=== PATIENT | female | born 1955 | race Caucasian/White ===

== ENCOUNTER 2016-12-16 10:04 | Inpatient (IN) | payer OTHER ==
[2016-12-16] VITALS (11 sets, daily range): BP systolic 118–152; BP diastolic 70–87; PULSE 75–113; RESP 17–22; TEMP 97.3–98.7; O2SAT 90–95
[~2016-12-16] VITALS: Ht 162.6 cm; Wt 73.2 kg
[2016-12-16 10:29] LABS: AUTOMATED NEUTROPHIL # 6.1 TH/MM3 (1.8-7.7); BASOPHIL # 0.3 TH/MM3 (0-0.2); BASOPHIL % 3.9 % (0.0-2.0); EOSINOPHIL # 0.1 TH/MM3 (0-0.4); HEMATOCRIT 53.5 % (35.0-46.0); HEMO FLAGS DIFF FINAL; LYMPH % 16.2 % (9.0-44.0); LYMPHOCYTE # 1.3 TH/MM3 (1.0-4.8); MEAN CELL VOLUME 91.8 FL (80.0-100.0); MEAN CORPUSCULAR HEMOGLOBIN 29.6 PG (27.0-34.0); MEAN CORPUSCULAR HGB CONC 32.2 % (32.0-36.0); MONO % 6.5 % (0.0-8.0); NEUT % 72.4 % (16.0-70.0); PLATELET COUNT 195 TH/MM3 (150-450); RED BLOOD COUNT 5.82 MIL/MM3 (4.00-5.30); RED CELL DISTRIBUTION WIDTH 15.3 % (11.6-17.2); WHITE BLOOD COUNT 8.3 TH/MM3 (4.0-11.0)
[2016-12-16] MEDS ORDERED: RESP: ALBUTEROL 2.5 MG/IPRATROPIUM 0.5 MG NEB (SCH) NEB ONE ×3 (10:30→15:00)
--- NOTE | 2016-12-16 10:30 | PD ---
HPI Chief Complaint: Edema Time Seen by Provider: 10:09 Travel History International Travel<30 days: No Contact w/Intl Traveler<30days: No Traveled to known affect area: No History of Present Illness HPI The patient was seen and examined in the presence of the nurse. She complains of swelling in her legs duration one week. She's had intermittent swelling for a long time but for last 7 days her feet and legs have been more swollen than usual. She was short of breath yesterday. Has room air saturation of 88% at this time. No chest pain or presyncopal symptoms. She does have a dry cough. Symptoms of moderate severity. No alleviating factors. Denies history of cardiac or pulmonary disease per her report. However she smokes and rarely goes to physicians. PFSH Past Medical History Medical History: Denies Significant Hx Hx Anticoagulant Therapy: No Diminished Hearing: No Tetanus Vaccination: Unknown ?: Not Social History Alcohol Use: No Tobacco Use: Yes (12/02 PPD) Substance Use: No Allergies-Medications (Allergen,Severity, Reaction): Coded Allergies: No Known Allergies (Unverified , 12/16/16) Reported Meds & Prescriptions Reported Meds & Active Scripts Active No Active Prescriptions or Reported Medications Review of Systems General / Constitutional: No: Fever Eyes: No: Visual changes HENT: No: Headaches Cardiovascular: Positive: Edema, No: Chest Pain or Discomfort Respiratory: Positive: Cough, Shortness of Breath Gastrointestinal: No: Abdominal Pain Genitourinary: No: Dysuria Musculoskeletal: Positive: Edema, No: Pain Skin: No Rash Neurologic: No: Weakness Psychiatric: No: Depression Endocrine: No: Polydipsia Hematologic/Lymphatic: No: Easy Bruising Physical Exam Narrative GENERAL: Well-nourished, well-developed patient was hypoxic with edema. SKIN: Warm and dry. HEAD: Atraumatic. Normocephalic. EYES: Pupils equal and round. No scleral icterus. No injection or drainage. ENT: No nasal bleeding or discharge. Mucous membranes pink and moist. NECK: Trachea midline. No JVD. CARDIOVASCULAR: Regular rate and rhythm. No murmur appreciated. RESPIRATORY: No accessory muscle use. Sparse basilar crackles. Breath sounds equal bilaterally. No wheezing GASTROINTESTINAL: Abdomen soft, non-tender, nondistended. Hepatic and splenic margins not palpable. MUSCULOSKELETAL: No obvious deformities. No clubbing. No cyanosis. Has symmetric edema from the knees down. Slight pitting in the [place] regions NEUROLOGICAL: Awake and alert. No obvious cranial nerve deficits. Motor grossly within normal limits. Normal speech. PSYCHIATRIC: Appropriate mood and affect; insight and judgment normal. Data Data Last Documented VS Vital Signs Date Time Temp Pulse Resp B/P Pulse Ox O2 Delivery O2 Flow Rate FiO2 12/16/16 12:10 92 22 136/74 93 Nasal Cannula 4 12/16/16 10:08 98.7 Orders Iv Access Insert/Monitor (12/16/16 10:21) Complete Blood Count With Diff (12/16/16 10:21) Comprehensive Metabolic Panel (12/16/16 10:21) Chest, Single Ap (12/16/16 ) Electrocardiogram (12/16/16 ) Albuterol-Ipratropium Neb (Duoneb Neb) (12/16/16 10:30) Albuterol-Ipratropium Neb (Duoneb Neb) (12/16/16 10:30) Furosemide Inj (Lasix Inj) (12/16/16 11:00) Ckmb (Isoenzyme) Profile (12/16/16 10:20) Troponin I (12/16/16 10:20) Admit Order (Ed Use Only) (12/16/16 12:13) Admit Order (Ed Use Only) (12/16/16 12:17) Arterial Blood Gas (Abg) (12/16/16 ) Admit To Inpatient (12/16/16 ) Vital Signs (Adult) SOPHIE.Q4H (12/16/16 12:16) ^ Executive Director / Telemetry (12/16/16 12:16) Intake + Output SOPHIE.QSHIFT (12/16/16 12:16) Diet Heart Healthy (12/16/16 Lunch) Sodium Chloride 0.9% Flush (Ns Flush) (12/16/16 21:00) Sodium Chloride 0.9% Flush (Ns Flush) (12/16/16 12:30) Bumetanide Inj (Bumex Inj) (12/16/16 18:00) Basic Metabolic Panel (Bmp) (12/17/16 06:00) Echo 2d Comp W/Dopp(Routine) (12/16/16 ) Resp Oxygen Merritt C Titrat 1-4 L (12/16/16 ) Labs Laboratory Tests Test 12/16/16 10:20 White Blood Count 8.3 TH/MM3 Red Blood Count 5.82 MIL/MM3 Hemoglobin 17.2 GM/DL Hematocrit 53.5 % Mean Corpuscular Volume 91.8 FL Mean Corpuscular Hemoglobin 29.6 PG Mean Corpuscular Hemoglobin 32.2 % Concent Red Cell Distribution Width 15.3 % Platelet Count 195 TH/MM3 Mean Platelet Volume 8.3 FL Neutrophils (%) (Auto) 72.4 % Lymphocytes (%) (Auto) 16.2 % Monocytes (%) (Auto) 6.5 % Eosinophils (%) (Auto) 1.0 % Basophils (%) (Auto) 3.9 % Neutrophils # (Auto) 6.1 TH/MM3 Lymphocytes # (Auto) 1.3 TH/MM3 Monocytes # (Auto) 0.5 TH/MM3 Eosinophils # (Auto) 0.1 TH/MM3 Basophils # (Auto) 0.3 TH/MM3 CBC Comment DIFF FINAL Differential Comment Sodium Level 141 MEQ/L Potassium Level 4.4 MEQ/L Chloride Level 99 MEQ/L Carbon Dioxide Level 33.6 MEQ/L Anion Gap 8 MEQ/L Blood Urea Nitrogen 24 MG/DL Creatinine 0.79 MG/DL Estimat Glomerular Filtration 74 ML/MIN Rate Random Glucose 117 MG/DL Calcium Level 8.5 MG/DL Total Bilirubin 0.7 MG/DL Aspartate Amino Transf 30 U/L (AST/SGOT) Alanine Aminotransferase 29 U/L (ALT/SGPT) Alkaline Phosphatase 82 U/L Total Creatine Kinase 77 U/L Troponin I LESS THAN 0.02 NG/ML Total Protein 7.5 GM/DL Albumin 3.6 GM/DL [facility] Medical Decision Making Medical Screen Exam Complete: Yes Emergency Medical Condition: Yes Medical Record Reviewed: Yes Differential Diagnosis Congestive heart failure, bronchitis, liver failure, renal failure Narrative Course I have reviewed the patient's electronic medical record. IV placed I reviewed her chest x-ray which shows pulmonary edema I reviewed her EKG shows sinus tachycardia without ectopy Extended cardiac monitoring shows sinus tachycardia without ectopy I placed her on oxygen as she is hypoxic CBC is normal Metabolic profile is normal LFTs are normal CK and troponin are normal I gave her 80 mg IV Lasix. Patient has a new onset of congestive heart failure and is hypoxic on room air. On 4 L nasal cannula she is in mid 90s. She will require inpatient evaluation for diuresis and further cardiac evaluation I reviewed with hospitalist Diagnosis Primary Impression: Congestive heart failure Qualified Code: I50.9 - Acute congestive heart failure, unspecified congestive heart failure type Additional Impression: Hypoxia Admitting Information Admitting Physician Requests: Admit Scripts No Active Prescriptions or Reported Meds Raymundo Kidd MD Dec 16, 2016 10:30
[2016-12-16 10:39] LABS: CHLORIDE 99 MEQ/L (98-107); POTASSIUM 4.4 MEQ/L (3.5-5.1); SODIUM (NA) 141 MEQ/L (136-145)
[2016-12-16 10:43] LABS: ANION GAP 8 MEQ/L (5-15); BICARBONATE 33.6 MEQ/L (21.0-32.0); BLOOD UREA NITROGEN 24 MG/DL (7-18)
[2016-12-16 10:46] LABS: ALT (GPT) 29 U/L (10-53); AST (GOT) 30 U/L (15-37); GLOMERULAR FILTRATION RATE 74 ML/MIN (>89)
[2016-12-16 10:48] LABS: TOTAL BILIRUBIN ADULT 0.7 MG/DL (0.2-1.0)
[2016-12-16 10:49] LABS: ALKALINE PHOSPHATASE 82 U/L (45-117)
[2016-12-16] MEDS ORDERED: FUROSEMIDE 100 MG/10 ML VIAL IV PUSH ONE (11:00)
--- NOTE | 2016-12-16 11:09 | RADHPO ---
EXAM DATE/TIME: 12/16/2016 10:32 [facility] COMPARISON: No previous studies available for comparison. INDICATIONS: Short of breath, chest pressure, bilateral feet swelling. MEDICAL HISTORY: None. SURGICAL HISTORY: None. ENCOUNTER: Initial ACUITY: 1 week PAIN SCORE: 10 LOCATION: Bilateral chest FINDINGS: The heart size is borderline enlarged. The lungs demonstrate mild prominence in the interstitium. A focal consolidation is not seen. No effusion is seen. CONCLUSION: 1. Borderline cardiomegaly with prominence in the interstitium likely representing some pulmonary di sease. 2. Hypertension versus mild edema. Oli Carmona MD on December 16, 2016 at 11:01 Board Certified Radiologist. This report was verified electronically.
[2016-12-16 11:51] LABS: CREATINE KINASE 77 U/L (26-192)
[2016-12-16] MEDS ORDERED: SODIUM CHLORIDE 0.9% FLUSH 5 ML FLUSH IVF PRN (12:30)
[2016-12-16 12:31] LABS: BLOOD GAS BASE EXCESS 12.1 mmol/L (-2-2); BLOOD GAS CARBOXYHEMOGLOBIN 7.6 % (0-4); BLOOD GAS HCO3 37 mmol/L (22-26); BLOOD GAS METHEMOGLOBIN 1.1 % (0-2); BLOOD GAS O2 HGB SATURATION 87 % (90-100); BLOOD GAS OXYGEN CONTENT 21.9 Vol % (12.0-20.0); BLOOD GAS PCO2 62 mmHG (38-42); BLOOD GAS PO2 73 mmHG (61-120); CRITICAL VALUE YES; DRAW SITE LT RADIAL; FIO2 36 %; LITER FLOW 4 L/M; OXYGEN DEVICE NASAL CANNULA; TEMP CORR TO 98.6
[2016-12-16 12:32] LABS: NUMBER OF ARTERIAL PUNCTURES 1; STAT YES; ULNAR PULSE PRESENT
--- NOTE | 2016-12-16 15:03 | HHI.HP ---
[facility] No Primary Care Physician Admission Diagnosis new onset CHF, hypoxia Diagnoses: Chief Complaint: SOB Travel History International Travel<30 Days: No Contact w/Intl Traveler <30 Da: No Traveled to Known Affected Are: No History of Present Illness Patient seen and evaluated in the emergency room. She is a 60-year-old female increased work of breathing and dyspnea on exertion and lower extremity swelling for several months but worsening over the last 7 days. She tried compression hose, Ventolin inhaler and still became increasingly short of breath. To the point she was unable to complete her activities of daily living. This point she came to the emergency room and was hypoxemic with room air sat of 88. She is a dry cough and had been dyspneic at rest but after 80 mg of Lasix a great diuresis did help the symptoms of dyspnea. Patient has been admitted for further evaluation of likely congestive heart failure and COPD exacerbation Review of Systems Constitutional: COMPLAINS OF: Fever Endocrine: DENIES: Abnorml menstrual pattern, Heat/cold intolerance, Polydipsia , Polyuria, Polyphagia Eyes: DENIES: Blurred vision, Diplopia, Eye inflammation, Eye pain, Vision loss , Photosensitivity, Double Vision Respiratory: COMPLAINS OF: Shortness of breath, DENIES: Apneas, Cough, Snoring , Wheezing, Hemoptysis, Sputum production Cardiovascular: COMPLAINS OF: Dyspnea on Exertion, Lower Extremity Edema Gastrointestinal: DENIES: Abdominal pain, Black stools, Bloody stools, Constipation, Diarrhea, Nausea, Vomiting, Difficulty Swallowing, Anorexia Genitourinary: DENIES: Abnormal vaginal bleeding, Dysmenorrhea, Dyspareunia, Sexual dysfunction, Urinary frequency, Urinary incontinence, Urgency, Hematuria , Dysuria, Nocturia, Vaginal discharge Musculoskeletal: DENIES: Joint pain, Muscle aches, Stiffness, Joint Swelling, Back pain, Neck pain Integumentary: DENIES: Abnormal pigmentation, Pruritus, Rash, Nail changes, Breast masses, Breast skin changes, Nipple discharge Hematologic/lymphatic: DENIES: Bruising, Lymphadenopathy Immunologic/allergic: DENIES: Eczema, Urticaria Neurologic: DENIES: Abnormal gait, Headache, Localized weakness, Paresthesias, Seizures, Speech Problems, Tremor, Poor Balance Psychiatric: DENIES: Anxiety, Confusion, Mood changes, Depression, Hallucinations, Agitation, Suicidal Ideation, Homicidal Ideation, Delusions Past Family Social History Past Medical History Denies Past Surgical History Dental extraction Reported Medications Reviewed and the medical record Allergies: Coded Allergies: No Known Allergies (Unverified , 12/16/16) Active Ordered Medications Reviewed in the medical record Family History Sister had carotid surgery, mother has dementia Social History Smokes half pack a day, lives in the family, works daily Physical Exam Vital Signs Vital Signs Date Time Temp Pulse Resp B/P Pulse Ox O2 Delivery O2 Flow Rate FiO2 12/16/16 14:05 97.8 75 18 132/70 92 12/16/16 12:32 98.6 92 20 136/74 93 Nasal Cannula 4 12/16/16 12:10 92 22 136/74 93 Nasal Cannula 4 12/16/16 10:55 97 18 146/82 94 Nasal Cannula 4 12/16/16 10:24 91 Nasal Cannula 4 12/16/16 10:16 88 Nasal Cannula 4 12/16/16 10:08 98.7 113 18 152/87 Physical Exam GENERAL: This is a well-nourished, well-developed patient, able to complete full sentences SKIN: No rashes, ecchymoses or lesions. Cool and dry. HEAD: Atraumatic. Normocephalic. No temporal or scalp tenderness. EYES: Pupils equal round and reactive. Extraocular motions intact. No scleral icterus. No injection or drainage. ENT: Nose without bleeding, purulent drainage or septal hematoma. Throat without erythema, tonsillar hypertrophy or exudate. Uvula midline. Airway patent. NECK: Trachea midline. No JVD or lymphadenopathy. Supple, nontender, no meningeal signs. CARDIOVASCULAR: Regular rate and rhythm without murmurs, gallops, or rubs. RESPIRATORY: Bilateral crackles in the bases GASTROINTESTINAL: Abdomen soft, non-tender, nondistended. No hepato-splenomegaly , or palpable masses. No guarding. MUSCULOSKELETAL: Extremities without clubbing, cyanosis, or edema. No joint tenderness, effusion, or edema noted. No calf tenderness. Negative Homans sign bilaterally. NEUROLOGICAL: Awake and alert. Cranial nerves II through XII intact. Motor and sensory grossly within normal limits. Five out of 5 muscle strength in all muscle groups. Normal speech. Laboratory Laboratory Tests Test 12/16/16 12/16/16 10:20 12:23 White Blood Count 8.3 Red Blood Count 5.82 Hemoglobin 17.2 Hematocrit 53.5 Mean Corpuscular Volume 91.8 Mean Corpuscular Hemoglobin 29.6 Mean Corpuscular Hemoglobin 32.2 Concent Red Cell Distribution Width 15.3 Platelet Count 195 Mean Platelet Volume 8.3 Neutrophils (%) (Auto) 72.4 Lymphocytes (%) (Auto) 16.2 Monocytes (%) (Auto) 6.5 Eosinophils (%) (Auto) 1.0 Basophils (%) (Auto) 3.9 Neutrophils # (Auto) 6.1 Lymphocytes # (Auto) 1.3 Monocytes # (Auto) 0.5 Eosinophils # (Auto) 0.1 Basophils # (Auto) 0.3 CBC Comment DIFF FINAL Differential Comment Sodium Level 141 Potassium Level 4.4 Chloride Level 99 Carbon Dioxide Level 33.6 Anion Gap 8 Blood Urea Nitrogen 24 Creatinine 0.79 Estimat Glomerular Filtration 74 Rate Random Glucose 117 Calcium Level 8.5 Total Bilirubin 0.7 Aspartate Amino Transf 30 (AST/SGOT) Alanine Aminotransferase 29 (ALT/SGPT) Alkaline Phosphatase 82 Total Creatine Kinase 77 Troponin I LESS THAN 0.02 Total Protein 7.5 Albumin 3.6 Blood Gas Puncture Site LT RADIAL Blood Gas Patient Temperature 98.6 Blood Gas HCO3 37 Blood Gas Base Excess 12.1 Blood Gas Oxygen Saturation 87 Arterial Blood pH 7.40 Arterial Blood Partial 62 Pressure CO2 Arterial Blood Partial 73 Pressure O2 Arterial Blood Oxygen Content 21.9 Arterial Blood 7.6 Carboxyhemoglobin Arterial Blood Methemoglobin 1.1 Blood Gas Hemoglobin 18.0 Oxygen Delivery Device NASAL CANNULA Blood Gas Liter Flow 4 Blood Gas Inspired Oxygen 36 Result Diagram: 12/16/16 1020 12/16/16 1020 Assessment and Plan Problem List: (1) COPD (chronic obstructive pulmonary disease) ICD Code: J44.9 Status: Acute Plan: With evidence of acute hypoxemic/hypercapnic respiratory failure Patient with ongoing tobaccoism for which she has been counseled We'll continue with steroids, bronchodilators and oxygen as needed ? Cor pulmonale, echocardiogram pending (2) Congestive heart failure ICD Code: I50.9 Status: Acute Plan: 2-D echo pending Continue with medical management of RUFINA inhibitor, check lipid panel Patient may need cardiac consultation Physician Certification 2 Midnight Certification Type: Admission for Inpatient Services Order for Inpatient Services The services are ordered in accordance with Medicare regulations or non- Medicare payer requirements, as applicable. In the case of services not specified as inpatient-only, they are appropriately provided as inpatient services in accordance with the 2-midnight benchmark. Estimated LOS (days): 3 3 days is the estimated time the patient will need to remain in the hospital, assuming treatment plan goals are met and no additional complications. Post-Hospital Plan: Home Problem Qualifiers (1) Congestive heart failure: Qualified Code: I50.9 - Acute congestive heart failure, unspecified congestive heart failure type Shanta Duke MD Dec 16, 2016 15:03
[2016-12-16] MEDS: LISINOPRIL 10 MG TAB PO SCH (16:21)
[2016-12-16] MEDS: predniSONE 20 MG TAB PO SCH ×2 (16:21→21:17)
[2016-12-16] MEDS ORDERED: BUMETANIDE INJ 1 MG/4 ML VIAL IVP SCH (18:00)
[2016-12-16] MEDS: RESP: ALBUTEROL 2.5 MG/IPRATROPIUM 0.5 MG NEB (SCH) NEB (19:01)
[2016-12-16] MEDS: SODIUM CHLORIDE 0.9% FLUSH 5 ML FLUSH IVF SCH (21:18)
[2016-12-17] VITALS (9 sets, daily range): BP systolic 85–119; BP diastolic 56–70; PULSE 89–96; RESP 16–22; TEMP 97.3–98.7; O2SAT 91–97
[2016-12-17 06:40] LABS: AUTOMATED NEUTROPHIL # 5.2 TH/MM3 (1.8-7.7); BASOPHIL % 0.3 % (0.0-2.0); HEMATOCRIT 51.1 % (35.0-46.0); HEMO FLAGS DIFF FINAL; LYMPH % 9.4 % (9.0-44.0); LYMPHOCYTE # 0.6 TH/MM3 (1.0-4.8); MEAN CELL VOLUME 91.6 FL (80.0-100.0); MEAN CORPUSCULAR HEMOGLOBIN 29.3 PG (27.0-34.0); MONO % 2.4 % (0.0-8.0); NEUT % 87.9 % (16.0-70.0); PLATELET COUNT 189 TH/MM3 (150-450); RED BLOOD COUNT 5.58 MIL/MM3 (4.00-5.30); RED CELL DISTRIBUTION WIDTH 14.6 % (11.6-17.2); WHITE BLOOD COUNT 5.9 TH/MM3 (4.0-11.0)
[2016-12-17 06:56] LABS: POTASSIUM 4.5 MEQ/L (3.5-5.1)
[2016-12-17 07:00] LABS: BICARBONATE 36.2 MEQ/L (21.0-32.0)
[2016-12-17] MEDS: RESP: ALBUTEROL 2.5 MG/IPRATROPIUM 0.5 MG NEB (SCH) NEB ×3 (07:21→19:58)
[2016-12-17] MEDS: SODIUM CHLORIDE 0.9% FLUSH 5 ML FLUSH IVF SCH ×2 (09:04→20:45)
[2016-12-17] MEDS: LISINOPRIL 10 MG TAB PO SCH (09:05)
[2016-12-17] MEDS: predniSONE 20 MG TAB PO SCH ×2 (09:05→20:44)
[2016-12-17 09:23] LABS: HDL CHOLESTEROL 55.9 MG/DL (40.0-60.0)
--- NOTE | 2016-12-17 15:55 | HHI.PR ---
Subjective Remarks The patient states that she feels better and wants to go home. The patient states that she cannot use oxygen when she goes home as she works cleaning rooms in a hotel. The patient denies dyspnea. She says her leg edema has improved since undergoing diuresis. Objective Vitals Vital Signs Date Time Temp Pulse Resp B/P Pulse Ox O2 Delivery O2 Flow Rate FiO2 12/17/16 12:00 98.4 95 22 105/63 92 12/17/16 09:08 19 91 12/17/16 08:25 89 12/17/16 08:00 97.7 93 22 109/56 93 12/17/16 07:23 96 Nasal Cannula 4.00 12/17/16 00:00 97.3 92 16 119/67 95 12/16/16 20:07 89 12/16/16 20:00 97.3 94 18 118/72 90 12/16/16 20:00 97.3 94 18 118/72 90 12/16/16 19:00 93 Nasal Cannula 4.00 12/16/16 16:00 98.0 93 17 127/72 94 I/O 12/16/16 12/16/16 12/16/16 12/17/16 12/17/16 12/17/16 06:59 14:59 22:59 06:59 14:59 22:59 Intake Total 240 ml 400 ml 120 ml 750 ml Output Total 2400 ml Balance -2160 ml 400 ml 120 ml 750 ml Intake Oral 240 ml 400 ml 120 ml 750 ml Output Urine Total 2400 ml # Voids 1 1 5 # Bowel Movements 0 0 Result Diagram: 12/17/16 0535 12/17/16 0533 Objective Remarks GENERAL: Well-nourished, well-developed patient. SKIN: Warm and dry. HEAD: Normocephalic. EYES: No scleral icterus. No injection or drainage. NECK: Supple, trachea midline. No JVD or lymphadenopathy. CARDIOVASCULAR: Regular rate and rhythm without murmurs, gallops, or rubs. RESPIRATORY: Breath sounds equal bilaterally. No accessory muscle use. GASTROINTESTINAL: Abdomen soft, non-tender, nondistended. EXTREMITIES: Trace pedal edema NEUROLOGICAL: Awake, alert, and oriented x 3. Non-focal. A/P Problem List: (1) Hypoxia ICD Code: R09.02 Status: Acute Assessment and Plan -Hypoxia. Possible CHF, possible COPD. She's being diuresed and treated with steroids. She continues to be hypoxic but states she is not short of breath. We'll continue with diuresis and follow-up results of echocardiogram. Deloris Shafer MD Dec 17, 2016 15:55
--- NOTE | 2016-12-17 16:01 | EC ---
Study Study Date:12/17/2016 STUDY CONCLUSIONS SUMMARY - Left ventricle: The cavity size was normal. Wall thickness was normal. Systolic function was normal. The estimated ejection fraction was in the range of 60% to 65%. Wall motion was normal; there were no regional wall motion abnormalities. - Aortic valve: Valve area: 2.1cm^2 (Vmax). - Mitral valve: Mild regurgitation. - Right ventricle: The cavity size was dilated. Wall thickness was normal. Systolic function was severely reduced. - Tricuspid valve: Mild-moderate regurgitation. - Pulmonary arteries: Systolic pressure was moderately increased. PA peak pressure: 58mm Hg (S). If LV function is below 40, please consider prescribing an ACEI or ARB or document rationale for non-use. PROCEDURE DATA STUDY STATUS: Elective. Procedure: Transthoracic echocardiography. Image quality was suboptimal. Scanning was performed from the parasternal, apical, and subcostal acoustic windows. Study completion: The patient tolerated the procedure well. Transthoracic echocardiography. M-mode, complete 2D, complete spectral Doppler, and color Doppler. Patient status: Inpatient. CARDIAC ANATOMY LEFT VENTRICLE: The cavity size was normal. Wall thickness was normal. Systolic function was normal. The estimated ejection fraction was in the range of 60% to 65%. Wall motion was normal; there were no regional wall motion abnormalities. AORTIC VALVE: Trileaflet; mildly thickened leaflets. Doppler: Transvalvular velocity was within the normal range. There was no stenosis. No regurgitation. Valve area: 2.1cm^2 (Vmax). AORTA: Aortic root: The aortic root was normal in size. MITRAL VALVE: Structurally normal valve. Doppler: Transvalvular velocity was within the normal range. There was no evidence for stenosis. Mild regurgitation. Peak gradient: 3mm Hg (D). LEFT ATRIUM: The atrium was normal in size. RIGHT VENTRICLE: The cavity size was dilated. Wall thickness was normal. Systolic function was severely reduced. PULMONIC VALVE: Doppler: Transvalvular velocity was within the normal range. There was no evidence for stenosis. No regurgitation. TRICUSPID VALVE: Structurally normal valve. Doppler: Transvalvular velocity was within the normal range. Mild-moderate regurgitation. PULMONARY ARTERY: The main pulmonary artery was normal-sized. Systolic pressure was moderately increased. RIGHT ATRIUM: The atrium was normal in size. PERICARDIUM: There was no pericardial effusion. SYSTEMIC VEINS: Inferior vena cava: The vessel was normal in size. BASIC MEASUREMENTS ADULT NORMAL Left ventricle LV internal dimension, ED, chordal level, *35.3 mm 43-52 PLAX LV internal dimension, ES, chordal level, 29 mm 23-38 PLAX Fractional shortening, chordal level, PLAX *18 % >29 LV posterior wall thickness, ED 8.96 mm IVS/LVPW ratio, ED 0.88 <1.3 Ventricular septum Septal thickness, ED 7.92 mm Aortic valve Leaflet separation 19 mm 15-26 BASIC MEASUREMENTS ADULT NORMAL Aortic valve Leaflet separation 19 mm 15-26 Aorta Root diameter, ED 20 mm 20-37 Left atrium Anterior-posterior dimension, ES 38 mm 19-40 LA/aortic root ratio 1.9 DOPPLER MEASUREMENTS ADULT NORMAL Main pulmonary artery Pressure, S *58 mm Hg =30 Aortic valve Peak velocity, S 157 cm/s Valve area, Vmax 2.1 cm^2 Mitral valve Peak E-wave velocity 93.3 cm/s Peak A-wave velocity 115 cm/s Deceleration time 187 ms 150-230 Peak gradient, D 3 mm Hg Peak E/A ratio 0.8 Maximal regurgitant velocity 270 cm/s Tricuspid valve Regurgitant peak velocity 274 cm/s Peak RV-RA gradient, S 30 mm Hg Maximal regurgitant velocity 274 cm/s Systemic veins Estimated CVP 10 mm Hg Right ventricle RV pressure, S *58 mm Hg <30 LEGEND: Mean values are shown as u=mean value. Asterisk (*) ceron values outside specified normal range. Prepared and signed by Abdoul Mejia [id number]
[2016-12-17] MEDS: BUMETANIDE INJ 1 MG/4 ML VIAL IVP SCH (17:46)
--- NOTE | 2016-12-17 20:53 | EKG ---
Date Performed: 12/16/2016 Time Performed: 10:34:36 PTAGE: 60 years EKG: Sinus tachycardia Possible left atrial abnormality Right axis deviation Possible septal inf arct - age undetermined Right ventricular hypertrophy Inferior T wave changes Abnormal ECG NO PREVIOUS TRACING DOCTOR: Mabel Lugo Interpretating Date/Time 12/17/2016 20:51:31
[2016-12-18] VITALS (10 sets, daily range): BP systolic 86–140; BP diastolic 55–82; PULSE 80–101; RESP 18–20; TEMP 96.7–97.7; O2SAT 78–96
[2016-12-18] MEDS: RESP: ALBUTEROL 2.5 MG/IPRATROPIUM 0.5 MG NEB (SCH) NEB ×3 (07:28→19:24)
[2016-12-18] MEDS: POTASSIUM CHLORIDE 20 MEQ CONTROLLED RELEASE TAB PO SCH ×2 (09:00→21:39)
[2016-12-18] MEDS: BUMETANIDE INJ 1 MG/4 ML VIAL IVP SCH ×2 (09:02→18:18)
[2016-12-18] MEDS: predniSONE 20 MG TAB PO SCH ×2 (09:02→21:39)
[2016-12-18] MEDS: SODIUM CHLORIDE 0.9% FLUSH 5 ML FLUSH IVF SCH ×2 (09:03→21:45)
[2016-12-18 09:14] LABS: POTASSIUM 4.5 MEQ/L (3.5-5.1)
[2016-12-18 09:17] LABS: BICARBONATE 38.5 MEQ/L (21.0-32.0)
[2016-12-18] MEDS ORDERED: OXYGENTANK NAS.CANULA ×2 (12:55→14:54)
[2016-12-18] MEDS ORDERED: PRED20 PO (14:53)
[2016-12-18] MEDS ORDERED: IPRASOL INH (14:53)
[2016-12-18] MEDS ORDERED: VENTAER INH (14:53)
[2016-12-18] MEDS ORDERED: NEBULIZER1 MI1 (14:54)
[2016-12-18] MEDS ORDERED: AZIT500T2 PO (14:54)
[2016-12-18] MEDS ORDERED: IOHEXOL 350 MG/ML 10 ML VIAL (for RAD DIAG) IV ONE (18:42)
--- NOTE | 2016-12-18 19:01 | RADHPO ---
EXAM DATE/TIME: 12/18/2016 18:26 [facility] COMPARISON: No previous studies available for comparison. INDICATIONS : Hypoxia. Evaluate pulmonary parenchyma. IV CONTRAST: 75 cc IV RADIATION DOSE: 9.57 CTDIvol (mGy) MEDICAL HISTORY : Chronic obstructive pulmonary disease. SURGICAL HISTORY : Pacemaker. ENCOUNTER: Initial ACUITY: 1 day PAIN SCALE: 3/10 LOCATION: Bilateral chest TECHNIQUE: Volumetric scanning of the chest was performed using a pulmonary embolism protocol MIP images were re constructed. Using automated exposure control and adjustment of the mA and/or kV according to patien t size, radiation dose was kept as low as reasonably achievable to obtain optimal diagnostic quality images. FINDINGS: PULMONARY ARTERIES: No filling defects are seen in the pulmonary arteries through the segmental level. LUNGS: There is patchy consolidation of the lung bases, right more so the mild. PLEURAE: There is a small right pleural effusion. MEDIASTINUM: No mediastinal, hilar or axillary lymphadenopathy. There is enlargement of the right atrium and right ventricle. Coronary artery calcification noted. MUSCULOSKELETAL: Within normal limits for patient age. MISCELLANEOUS: The visualized upper abdominal organs demonstrate no acute abnormality. CONCLUSION: 1. No pulmonary embolus. 2. Patchy consolidation of both lung bases, right more so the left. 3. Small right pleural effusion. 4. Coronary artery calcification. Enlarged right heart. Oli Dacosta MD on December 18, 2016 at 18:58 Board Certified Radiologist. This report was verified electronically.
--- NOTE | 2016-12-18 19:12 | HHI.PR ---
Subjective Remarks Late entry patient was seen several times this afternoon. The patient really wants to go home. Unfortunately she is still hypoxic 78% on room air. The patient states she has never been diagnosed with COPD although she does have long-term history of smoking. Objective Vitals Vital Signs Date Time Temp Pulse Resp B/P Pulse Ox O2 Delivery O2 Flow Rate FiO2 12/18/16 16:00 96.7 100 18 119/75 95 12/18/16 12:00 97.0 88 18 121/72 95 12/18/16 09:00 94 12/18/16 08:30 2.00 12/18/16 08:00 96.7 88 18 98/78 95 12/18/16 07:41 78 21 12/18/16 07:30 94 Nasal Cannula 2.00 12/18/16 04:00 97.5 89 20 92/58 91 12/18/16 00:00 97.2 93 18 86/55 96 12/17/16 20:00 97.5 93 20 85/58 96 12/17/16 20:00 90 12/17/16 19:58 97 Nasal Cannula 4.00 I/O 12/17/16 12/17/16 12/17/16 12/18/16 12/18/16 12/18/16 07:00 15:00 23:00 07:00 15:00 23:00 Intake Total 120 ml 750 ml 120 ml 60 ml 10 ml Balance 120 ml 750 ml 120 ml 60 ml 10 ml Intake Oral 120 ml 750 ml 120 ml 60 ml IV Total 10 ml # Voids 1 5 3 1 # Bowel Movements 0 0 0 Result Diagram: 12/17/16 0535 12/18/16 0900 Objective Remarks GENERAL: Well-nourished, well-developed patient. SKIN: Warm and dry. HEAD: Normocephalic. EYES: No scleral icterus. No injection or drainage. NECK: Supple, trachea midline. No JVD or lymphadenopathy. CARDIOVASCULAR: Regular rate and rhythm without murmurs, gallops, or rubs. RESPIRATORY: Breath sounds equal bilaterally. Lung jacobson are clear to auscultation. No accessory muscle use. GASTROINTESTINAL: Abdomen soft, non-tender, nondistended. EXTREMITIES: Trace pedal edema NEUROLOGICAL: Awake, alert, and oriented x 3. Non-focal. A/P Problem List: (1) Hypoxia ICD Code: R09.02 Status: Acute Assessment and Plan -Hypoxia. Possible CHF, possible COPD. She's being diuresed and treated with steroids. She is still hypoxic today. Chest x-ray was indicative of possible mild pulmonary edema however echocardiogram shows preserved ejection fraction. She did have some mild pedal edema which has resolved. However she is still hypoxic 78% on room air. I will check it d-dimer, this was mildly elevated therefore I will proceed with CTA. CTA was reviewed and does show patchy consolidation of both lung bases, I will start the patient on Rocephin and Zithromax. She continues to be hypoxic but states she is not short of breath. We have arranged home oxygen for her which will be delivered tomorrow. Deloris Shafer MD Dec 18, 2016 19:12
[2016-12-18] MEDS ORDERED: cefTRIAXone INJ 2,000 MG in SODIUM CHLORIDE 0.9% INJ 100 ML IV SCH (20:00)
[2016-12-18] MEDS: AZITHROMYCIN 250 MG TAB PO SCH (21:44)
[2016-12-19] VITALS: BP 111/71; PULSE 80; RESP 18; TEMP 96.7; O2SAT 94
[2016-12-19 04:00] VITALS: BP 119/64; PULSE 84; RESP 18; TEMP 96.6; O2SAT 92
[2016-12-19] MEDS: RESP: ALBUTEROL 2.5 MG/IPRATROPIUM 0.5 MG NEB (SCH) NEB ×2 (07:48→14:40)
[2016-12-19 07:50] VITALS: O2SAT 94
[2016-12-19 08:00] VITALS: BP 121/65; PULSE 89; RESP 18; TEMP 96.3; O2SAT 93
[2016-12-19] MEDS: POTASSIUM CHLORIDE 20 MEQ CONTROLLED RELEASE TAB PO SCH (09:31)
[2016-12-19] MEDS: AZITHROMYCIN 250 MG TAB PO SCH (09:31)
[2016-12-19] MEDS: predniSONE 20 MG TAB PO SCH (09:31)
[2016-12-19] MEDS: SODIUM CHLORIDE 0.9% FLUSH 5 ML FLUSH IVF SCH (09:32)
--- NOTE | 2016-12-19 10:58 | HHI.DS ---
Discharge Summary Admission Date Dec 16, 2016 at 12:17 Discharge Date: Dec 19, 2016 Admitting Diagnosis hypoxia, pneumonia (1) Hypoxia ICD Code: R09.02 (2) COPD (chronic obstructive pulmonary disease) ICD Code: J44.9 (3) Community acquired pneumonia ICD Code: J18.9 (4) Acute diastolic CHF (congestive heart failure) ICD Code: I50.31 Procedures None Brief History - From Admission This patient is a 60-year-old female increased work of breathing and dyspnea on exertion and lower extremity swelling for several months but worsening over the last 7 days. She tried compression hose, Ventolin inhaler and still became increasingly short of breath. She has a long-term history of tobacco use but no formal diagnosis of COPD. She became so dyspneic she was unable to complete her activities of daily living. When she came to the emergency room she was found to be hypoxemic with room air sat of 88. She did note that she had a dry cough and had been dyspneic at rest but after 80 mg of Lasix a great diuresis did help the symptoms of dyspnea. Patient has been admitted for further evaluation of likely congestive heart failure and COPD exacerbation. Chest x-ray the emergency department did show some borderline cardiomegaly with possible prominence in the interstitium likely representing some pulmonary disease. CBC/BMP: 12/17/16 0535 12/18/16 0900 Significant Findings Laboratory Tests Test 12/16/16 12/17/16 12/17/16 12/18/16 12:23 05:33 05:35 09:00 Blood Gas HCO3 37 mmol/L (22-26) Blood Gas Base Excess 12.1 mmol/L (-2-2) Blood Gas Oxygen Saturation 87 % (90-100) Arterial Blood Partial 62 mmHG (38-42) Pressure CO2 Arterial Blood Oxygen Content 21.9 Vol % (12.0-20.0) Arterial Blood 7.6 % (0-4) Carboxyhemoglobin Blood Gas Hemoglobin 18.0 G/DL (12.0-16.0) Chloride Level 97 MEQ/L 93 MEQ/L (98-107) (98-107) Carbon Dioxide Level 36.2 MEQ/L 38.5 MEQ/L (21.0-32.0) (21.0-32.0) Blood Urea Nitrogen 24 MG/DL (7-18) 30 MG/DL (7-18) Random Glucose 113 MG/DL (74-106) Calcium Level 8.2 MG/DL (8.5-10.1) Cholesterol Level 224 MG/DL (120-200) LDL Cholesterol 155 MG/DL (0-99) Red Blood Count 5.58 MIL/MM3 (4.00-5.30) Hemoglobin 16.4 GM/DL (11.6-15.3) Hematocrit 51.1 % (35.0-46.0) Neutrophils (%) (Auto) 87.9 % (16.0-70.0) Lymphocytes # (Auto) 0.6 TH/MM3 (1.0-4.8) D-Dimer Quantitative (PE/DVT) 0.77 MG/L FEU (0.00-0.50) Estimat Glomerular Filtration 82 ML/MIN (>89) Rate B-Type Natriuretic Peptide 257 PG/ML (0-100) PE at Discharge GENERAL: Well-nourished, well-developed patient. SKIN: Warm and dry. HEAD: Normocephalic. EYES: No scleral icterus. No injection or drainage. NECK: Supple, trachea midline. No JVD or lymphadenopathy. CARDIOVASCULAR: Regular rate and rhythm without murmurs, gallops, or rubs. RESPIRATORY: Breath sounds equal bilaterally. Lung jacobson are clear to auscultation. No accessory muscle use. GASTROINTESTINAL: Abdomen soft, non-tender, nondistended. EXTREMITIES: Trace pedal edema NEUROLOGICAL: Awake, alert, and oriented x 3. Non-focal. Hospital Course The patient was admitted. However her hypoxemia did not improve with diuresis. Echocardiogram revealed preserved ejection fraction. The edema did go away with the diuresis. Additionally her BNP was only marginally elevated at 300. The patient symptoms improved and she felt fine and wanted to go home however remain hypoxemic. I did check a CTA which was negative for pulmonary embolism but did show patchy consolidation of both lung bases. Therefore the patient may have hypoxemia due to a mixed picture of pneumonia, also probable underlying COPD. Cannot rule out diastolic congestive heart failure and she was treated for this. Regardless she is stable on 2 L nasal cannula oxygen walking around the room and home oxygen has been arranged. She would like to go home today. She will be treated with Levaquin by mouth. She was instructed that if she becomes more short of breath with worsening cough fever or chills that she should return to the ER. I did advise her to get established with a primary care physician as well as a jewel bearing grinder for more workup of her lungs. I advised her to continue with her smoking cessation. Pt Condition on Discharge: Stable Discharge Disposition: Discharge Home Discharge Time: > 30 minutes Discharge Instructions DIET: Follow Instructions for: As Tolerated, No Restrictions Activities you can perform: Regular-No Restrictions New Medications: Albuterol 18 GM Inh (Ventolin Hfa 18 GM Inh) 90 Mcg/Act Aer 2 PUFF INH Q4H PRN SHORTNESS OF BREATH #1 Ref 0 INHALER Furosemide (Lasix) 20 Mg Tab 20 MG PO DAILY PRN leg swelling #30 Ref 0 TAB Ipratropium-Albuterol Neb (Duoneb) 0.5-2.5 Mg/3 Ml Neb 1 NEBULE INH Q4HR NEB Breathing Treatment #180 Ref 0 NEBULE Levofloxacin (Levaquin) 750 Mg Tab 750 MG PO DAILY Infection Days 7 Ref 0 TAB Nebulizer (Nebulizer) 1 Mis Mis 1 EA .ROUTE DIRECTED Breathing Treatment #1 Ref 0 EA Oxygen tank (Oxygen tank) 1 Ea Tank 2 LITER RUBI.CANULA CONTINUOUS Oxygen Concentrator Portable Gaseous 2 L/min via Nasal Cannula Continuous For 99 months HYPOXEMIA PREVENTION #2 CYLINDER Oxygen tank (Oxygen tank) 1 Ea Tank 2 LITER RUBI.CANULA CONTINUOUS Oxygen Concentrator Portable Gaseous 2 L/min via Nasal Cannula Continuous For 99 months HYPOXEMIA PREVENTION #2 CYLINDER Potassium Chloride ER (Potassium Chloride ER) 10 Meq Cap 10 MEQ PO DAILY PRN when taking lasix #30 Ref 0 CAP Prednisone (Prednisone) 20 Mg Tab 20 MG PO DIRECTED 40 MG twice a day x 3 days, then 20 MG daily x 3 days, then 10 MG daily x 3 days Inflammation #11 Ref 0 TAB Deloris Shafer MD Dec 19, 2016 10:58
[2016-12-19] MEDS ORDERED: POTA10CA PO (11:00)
[2016-12-19] MEDS ORDERED: FURO1TAB62 PO (11:00)
[2016-12-19] MEDS ORDERED: LEVA750T PO (11:00)
[2016-12-19 12:00] VITALS: BP 118/62; PULSE 88; RESP 18; TEMP 97.3; O2SAT 95
[2016-12-19 12:48] VITALS: PULSE 87
== END 2016-12-19 16:55 | disposition home or self-care (01) | DRG 291 ==
LOC: PHED 10:04 → PHEDA 12:17 → PH3B 13:32
PROVIDERS: ADMIT Family Medicine; ATTEND Family Medicine
DX: I50.31 Acute diastolic (congestive) heart failure (principal); J18.9 Pneumonia, unspecified organism; J96.01 Acute respiratory failure with hypoxia; J96.02 Acute respiratory failure with hypercapnia; J44.0 Chronic obstructive pulmonary disease with (acute) lower respiratory infection; F17.210 Nicotine dependence, cigarettes, uncomplicated
CPT/HCPCS: 36600; 71010; 71275; 80048; 80053; 80061; 82550; 82805; 83880; 84443; 84484; 85025; 85379; 93005; 93306; 94620; 94640; 94664; 96374; J0696; J1940; J7512; Q9967